=== PATIENT | female | born 1995 | race Caucasian/White ===

== ENCOUNTER 2022-12-04 13:05 | Emergency (ER) | payer OTHER, SELFPAY ==
[2022-12-04 13:13] VITALS: BP 140/71; PULSE 92; RESP 18; TEMP 36.4; O2SAT 100
--- NOTE | 2022-12-04 16:16 | ED.NAVMDI ---
HPI - Nausea/Vomiting/Diarrhea General Chief complaint: Nausea/Vomiting/Diarrhea Stated complaint: CHECK FOR FOOD POISONING Time Seen by Provider: 12/04/22 15:55 Source: patient Mode of arrival: ambulatory Limitations: no limitations History of Present Illness HPI Narrative: Patient is a 27 y/o female who presents to the ED with c/o nausea. Patient reports on Sunday she bought a [employer] shot [place] [employer] [place] She states after she drinks the shot she realized it was 4 months and had mold in the container. Since then, patient has felt unwell, with nausea, upset stomach, soft stools, subjective fevers. Patient is concerned she has food poisoning. She denies any documented fever. Denies rectal bleeding, melena, vomiting. Related Data Allergies Allergy/AdvReac Type Severity Reaction Status Date / Time lactase [From Dairy Aid] Allergy Hives Verified 12/04/22 15:53 Review of Systems Review of Systems: CONSTITUTIONAL: See HPI. CARDIOVASCULAR: Denies chest pain. RESPIRATORY: Denies dyspnea. GASTROINTESTINAL: See HPI. GENITOURINARY: Denies dysuria or hematuria. SKIN: Denies rash or itching. MUSCULOSKELETAL: Denies back pain, joint pain, or myalgia. All systems reviewed & are unremarkable except as noted in HPI and below Exam Narrative: GENERAL: Well appearing, well-nourished, non-toxic, in no acute distress. HEAD: Normocephalic, atraumatic. NECK: Supple. No adenopathy, no masses. RESPIRATORY: Airway patent, respirations nonlabored. Clear to auscultation bilaterally, no rales, rhonchi, wheezing. CARDIOVASCULAR: Regular rate and rhythm without murmurs, rubs, or gallops. Peripheral pulses 2+ and equal bilaterally. ABDOMINAL: Soft, no significant tenderness throughout abdomen, nondistended, no hepatosplenomegaly. Normoactive BS. MUSCULOSKELETAL: Moves all extremities. Strength/ROM intact without gross deformities. SKIN: Warm, dry, normal color. No rashes. NEURO: A&O X3. Speech clear. Cranial nerves II-XII grossly intact. Steady gait. No ataxic movements. PSYCHIATRIC: Appropriate mood and affect. Normal interaction. Course Vital Signs Vital signs: Vital Signs Temperature 97.6 F 12/04/22 13:13 Pulse Rate 92 12/04/22 13:13 Respiratory Rate 18 12/04/22 13:13 Blood Pressure 140/71 12/04/22 13:13 Pulse Oximetry 100 12/04/22 13:13 Temperature 97.6 F 12/04/22 13:13 Pulse Rate 92 12/04/22 13:13 Respiratory Rate 18 12/04/22 13:13 Blood Pressure 140/71 12/04/22 13:13 Pulse Oximetry 100 12/04/22 13:13 MDM - Nausea/Vomiting/Diarrhea MDM Narrative Medical decision making narrative: Patient presented to ED with nausea, upset stomach, soft stools after drinking an health shot. Vitals stable upon arrival. Afebrile. Patient's abdominal exam is benign, no significant focal tenderness, no signs of surgical abdomen to suggest need for imaging. Basic blood work was obtained and unremarkable, no leukocytosis. No electrolyte abnormality. Normal LFTs and lipase. On reevaluation, patient feeling improved after nausea medicine and a liter of fluids. She was updated on laboratory findings. She had specifically asked to be tested for Salmonella and E. coli, which I advised her are not routine studies performed in the ED. Discussed obtaining a stool culture for sample analysis. Patient would like to proceed with this. She was given a collection hat and a outpatient order for a stool culture was placed. Advised patient to follow with primary care doctor for further evaluation. She was given strict return precautions. Discharged in stable condition. Medical Records Attestation: I reviewed the patient's medical records. Lab Data Attestation: I reviewed the patient's lab results. 12/04/22 16:24 12/04/22 16:24 Labs: Lab Results 12/04/22 Range/Units 16:24 WBC 7.0 (4.5-10.0) K/mm3 RBC 4.69 (4.2-5.4) M/mm3 Hgb 13.6
[2022-12-04 16:32] LABS: Basophils Absolute Auto 0.1 K/mm3 (0.0-0.1); Basophils Percent Auto 0.9 % (0.2-1.2); Eosinophils Absolute Auto 0.2 K/mm3 (0-0.3); Eosinophils Percent Auto 2.7 % (0-4.4); Hematocrit 40.8 % (37.0-47.0); Hemoglobin 13.6 g/dL (12.0-15.0); Immature Granulocyte Absolute 0.02 K/mm3 (0.00-0.031); Immature Granulocyte Percent A 0.3 % (0-0.5); Lymphocytes Absolute Auto 3.05 K/mm3 (0.9-3.2); Lymphocytes Percent Auto 43.7 % (18.3-44.2); Mean Corpuscular HGB Conc 33.3 g/dl (32-36); Mean Platelet Volume 10.4 fl (7.4-10.4); Monocytes Absolute Auto 0.6 K/mm3 (0.1-0.6); Monocytes Percent Auto 8.5 % (2.6-8.5); Neutrophils Absolute Auto 3.1 K/mm3 (1.3-6.7); Neutrophils Percent Auto 43.9 % (45.5-73.1); Platelet Count Result 219 k/mm3 (150-375); Red Blood Count 4.69 M/mm3 (4.2-5.4); Red Cell Distribution Width 12.5 % (11.5-14.5)
[2022-12-04 16:41] LABS: Alanine Aminotransferase 17 U/L (6-35); Albumin Level 4.7 g/dL (3.5-5.1); Alkaline Phosphatase 44 U/L (38-126); Anion Gap 7 mmol/L (8-16); Aspartate Amino Transferase 22 U/L (14-36); Bilirubin,Total 1.5 mg/dL (0.2-1.3); Blood Urea Nitrogen 15 mg/dL (7-17); Calcium 9.2 mg/dL (8.4-10.2); Carbon Dioxide 29 mmol/L (22-30); Chloride 104 mmol/L (98-107); Estimated CRCL calculation 112 ml/min; Estimated Glomerular Filt Rate > 60; Glucose 88 mg/dL (65-110); Lipase 72 U/L (23-300); Potassium 3.9 mmol/L (3.4-5.0); Sodium 140 mmol/L (137-145)
[2022-12-04] MEDS: ONDANSETRON INJ 4 MG/2 ML VIAL IV PUSH (16:44)
[2022-12-04] MEDS: SODIUM CHLORIDE 0.9% IV 1,000 ML 999 ML IV CONT (16:44)
== END 2022-12-04 18:20 | disposition home or self-care (01) ==
PROVIDERS: Emergency Provider Physician Assistant
DX: A05.9 Bacterial foodborne intoxication, unspecified (principal)
CPT/HCPCS: 36415; 80053; 83690; 85025; 96361; 96374; 99284; J2405; J7030

== ENCOUNTER 2022-12-05 10:11 | Outpatient (CLI) | payer OTHER, SELFPAY | END 2022-12-05 10:12 | disposition home or self-care (01) | LOC: ANHLAB 10:12 | PROVIDERS: Visit Provider Physician Assistant | DX: A05.9 Bacterial foodborne intoxication, unspecified (principal) | CPT/HCPCS: 87045; 87427 ==

== ENCOUNTER 2022-12-11 10:55 | Outpatient (CLI) | payer OTHER, SELFPAY ==
[2022-12-11 11:32] LABS: Basophils Percent Auto 0.6 % (0.2-1.2); Eosinophils Absolute Auto 0.3 K/mm3 (0-0.3); Eosinophils Percent Auto 5.1 % (0-4.4); Hematocrit 38.5 % (37.0-47.0); Hemoglobin 12.6 g/dL (12.0-15.0); Immature Granulocyte Absolute 0.01 K/mm3 (0.00-0.031); Immature Granulocyte Percent A 0.2 % (0-0.5); Lymphocytes Absolute Auto 3.08 K/mm3 (0.9-3.2); Lymphocytes Percent Auto 48.7 % (18.3-44.2); Mean Corpuscular HGB Conc 32.7 g/dl (32-36); Mean Corpuscular Hemoglobin 28.9 pg (26-34); Mean Corpuscular Volume 88.3 fl (80-100); Mean Platelet Volume 10.3 fl (7.4-10.4); Monocytes Absolute Auto 0.6 K/mm3 (0.1-0.6); Monocytes Percent Auto 9.3 % (2.6-8.5); Neutrophils Absolute Auto 2.3 K/mm3 (1.3-6.7); Neutrophils Percent Auto 36.1 % (45.5-73.1); Platelet Count Result 218 k/mm3 (150-375); Red Blood Count 4.36 M/mm3 (4.2-5.4); Red Cell Distribution Width 12.6 % (11.5-14.5); White Blood Count 6.3 K/mm3 (4.5-10.0)
[2022-12-11 12:08] LABS: Alanine Aminotransferase 17 U/L (6-35); Albumin Level 4.5 g/dL (3.5-5.1); Alkaline Phosphatase 47 U/L (38-126); Anion Gap 7 mmol/L (8-16); Aspartate Amino Transferase 24 U/L (14-36); Bilirubin,Total 0.7 mg/dL (0.2-1.3); Blood Urea Nitrogen 15 mg/dL (7-17); Calcium 9.2 mg/dL (8.4-10.2); Carbon Dioxide 28 mmol/L (22-30); Chloride 104 mmol/L (98-107); Cholesterol 180 mg/dL (0-200); Estimated Glomerular Filt Rate > 60; Glucose 97 mg/dL (65-110); HDL Direct 74 mg/dL; Potassium 3.9 mmol/L (3.4-5.0); Sodium 139 mmol/L (137-145); Triglycerides 39 mg/dL (<150)
[2022-12-11 12:19] LABS: LDL Cholesterol Direct 72 mg/dL
[2022-12-11 12:27] LABS: Vitamin D 25 Hydroxy 67.3 ng/mL
[2022-12-11 12:38] LABS: Thyroid Stimulating Hormone 0.761 uIU/mL (0.465-4.680)
== END 2022-12-11 10:56 | disposition home or self-care (01) ==
LOC: ANHLAB 10:56
PROVIDERS: Visit Provider Registered Nurse
DX: Z79.899 Other long term (current) drug therapy (principal)
CPT/HCPCS: 36415; 80053; 80061; 82306; 84443; 85025

== ENCOUNTER 2022-12-22 15:36 | Outpatient (CLI) | payer OTHER, SELFPAY ==
--- NOTE | ~2022-12-22 | US_ITS ---
Thyroid ultrasound. Clinical History: Nontoxic goiter Findings: Real-time sonography of the thyroid gland was performed. The right lobe measures 5.1 x 1.8 x 2.1 cm. The left lobe measures 5.2 x 1.4 x 1.8 cm. The isthmus is 3 mm in AP diameter. No discrete thyroid nodule identified. Impression: No significant abnormality seen. Reviewed, dictated and finalized at [facility]. Impression: No significant abnormality seen.
--- NOTE | ~2022-12-22 | US_ITS ---
EXAMINATION: US breast LT limited HISTORY: Palpable lump in the upper outer quadrant of the left breast TECHNIQUE: Limited left breast ultrasound was performed. FINDINGS: There is a 1.6 x 1.4 x 0.7 cm oval, circumscribed, parallel, hypoechoic mass with posterior acoustic enhancement and minimal internal vascularity at the 2:00 location 5 cm from the nipple babak esponding to the palpable abnormality of concern. IMPRESSION: Probably benign left breast mass corresponding to the palpable abnormality. Recommend continued clini marcie physical examination and follow-up targeted left breast ultrasound in six months. BI-RADS category 3, probably benign findings. Reviewed, dictated and finalized at [facility]. IMPRESSION: Probably benign left breast mass corresponding to the palpable abnormality. Rec ommend continued clinical physical examination and follow-up targeted left ry st ultrasound in six months. BI-RADS category 3, probably benign findings.
== END 2022-12-22 15:37 | disposition home or self-care (01) ==
PROVIDERS: Visit Provider Registered Nurse
DX: N63.21 Unspecified lump in the left breast, upper outer quadrant (principal); E04.9 Nontoxic goiter, unspecified
CPT/HCPCS: 76536; 76642

== ENCOUNTER 2023-07-23 13:31 | Outpatient (CLI) | payer OTHER, SELFPAY ==
--- NOTE | ~2023-07-23 | US_ITS ---
US breast LT limited DATE: 07/23/2023 INDICATION: Six-month follow-up TECHNIQUE: Real-time and color flow imaging targeted at 2:00 5 cm from nipple COMPARISON: 12/2022 left breast Limited ultrasound examination: 1.6 x 1.4 x 0.7 cm oval circumscribed parallel hypoechoic mass with posterior enhancement and minimal vascularity was reported at 2:00 5 c m from the nipple FINDINGS: Approximately 1.2 x 0.7 x 1.3 cm parallel circumscribed hypoechoic mass has diminished in s ize since 12/22/2022. The interval decrease in size, circumscribed margins and parallel orientation an d posterior enhancement are most consistent with benign process, most likely fibroadenoma. IMPRESSION: BIRADS Category 2: Benign finding Reviewed, dictated and finalized at [facility]. Reviewed, dictated and finalized at [facility]. [employer]
== END 2023-07-23 13:32 | disposition home or self-care (01) ==
LOC: ANHIMG 13:35
PROVIDERS: Visit Provider Obstetrics & Gynecology
DX: N63.20 Unspecified lump in the left breast, unspecified quadrant (principal)
CPT/HCPCS: 76642

== ENCOUNTER 2023-07-26 09:25 | Outpatient (CLI) | payer OTHER, SELFPAY ==
[2023-07-28 15:33] LABS: NIL 0.02 IU/mL; Quantiferon TB Plus, 1T NEGATIVE (NEGATIVE)
== END 2023-07-26 09:26 | disposition home or self-care (01) ==
DX: Z11.1 Encounter for screening for respiratory tuberculosis (principal)
CPT/HCPCS: 36415; 86480

== ENCOUNTER 2024-02-01 08:44 | Outpatient (CLI) | payer OTHER, SELFPAY ==
[2024-02-01 09:47] LABS: Alanine Aminotransferase 13 U/L (6-35); Albumin Level 4.2 g/dL (3.5-5.1); Alkaline Phosphatase 42 U/L (38-126); Anion Gap 7 mmol/L (4-12); Aspartate Amino Transferase 20 U/L (14-36); Bilirubin,Total 1.7 mg/dL (0.2-1.3); Blood Urea Nitrogen 18 mg/dL (7-17); Carbon Dioxide 28 mmol/L (22-30); Chloride 102 mmol/L (98-107); Cholesterol 169 mg/dL (0-200); Estimated Glomerular Filt Rate > 60; Glucose 87 mg/dL (65-110); HDL Direct 72 mg/dL; Potassium 4.4 mmol/L (3.4-5.0); Sodium 137 mmol/L (137-145); Triglycerides 34 mg/dL (<150)
[2024-02-01 09:53] LABS: Rheumatoid Factor < 12.0 IU/ML (<12)
[2024-02-01 09:56] LABS: Erythrocyte Sedimentation Rate 1 mm/hr (0-20)
[2024-02-01 09:58] LABS: LDL Cholesterol Direct 73 mg/dL
[2024-02-01 10:13] LABS: Thyroid Stimulating Hormone 0.539 uIU/mL (0.465-4.680)
[2024-02-01 10:44] LABS: Vitamin D 25 Hydroxy 43.1 ng/mL
[2024-02-01 10:46] LABS: Hemoglobin A1C 5.3 % (<5.7)
[2024-02-05 06:23] LABS: Triiodothyronine T3 Free 3.6 pg/mL (2.3-4.2)
[2024-02-05 17:09] LABS: Thyroid Peroxidase Antibodies 1 IU/mL (<9)
[2024-02-08 14:54] LABS: Anti Cyclic Citrullinated Pept <16 UNITS
== END 2024-02-01 08:45 | disposition home or self-care (01) ==
LOC: ANHLAB 08:46
PROVIDERS: PCP Family Medicine; Visit Provider Family Medicine
DX: E55.9 Vitamin D deficiency, unspecified (principal); E78.2 Mixed hyperlipidemia; Z13.1 Encounter for screening for diabetes mellitus; E04.9 Nontoxic goiter, unspecified; Z83.49 Family history of other endocrine, nutritional and metabolic diseases; M25.50 Pain in unspecified joint; Z00.00 Encounter for general adult medical examination without abnormal findings
CPT/HCPCS: 36415; 80053; 80061; 82306; 83036; 84439; 84443; 84481; 85652; 86038; 86039; 86200; 86376; 86430; 86800

== ENCOUNTER 2025-03-16 08:56 | Outpatient (CLI) | payer OTHER, SELFPAY ==
--- OUTSIDE RECORDS SUMMARY | 2024-04-05 16:00 | XMS_ITS ---
Author Organization [facility] Address [address] [place] [address] Care Team Providers Care Form Tamper Operator Name Role Phone Merna Valente Primary Care Provider Migration, Provider Unavailable Unavailable REASON FOR VISIT Multum To [facility] Conversion Encounter Medications Medication SIG (Take, Route, Frequency, Duration) Notes Start Date End Date Status Spironolactone 50 MG Tablet 2 tabs orally daily; Duration: 90 days 03/06/2024 Active Multi Vitamin - Tablet 1 tab(s) orally once a day Unknown Fish Oil 1000 MG Capsule 1 cap(s) orally 3 times a day (with meals) Unknown Vitamin D3 250 MCG CAPSULE 1 CAP(S) ORALLY ONCE A WEEK *Please review and pick correct strength-formulati on from Medispan options. If intended option is not shown, discontinue and re-order from Quick Search* *Pick strength-form from Medispan for eRX* Unknown Collagen Skin Renewal *Please re view and pick correct strength-formulati on from Medispan options. If intended option is not shown, discontinue and re-order from Quick Search* *Pick strength-form from Medispan for eRX* Unknown Encounters Encounter Location Date Provider Diagnosis [address] [id number] 04/05/2024 Provider Migration Polycystic ovarian syndrome E28.2 Assessments Encounter Date Diagnosis (ICD Code) Assessment Notes Treatment Notes Treatment Clinical Notes Section Notes 04/05/2024 Polycystic ovarian syndrome (ICD-10 - E28.2) Plan Of Treatment Medication Medication Name Sig Start Date Stop Date Notes Spironolactone 50 MG Tablet 2 tabs orall y daily; Duration: 90 days 03/06/2024 Next Appt Details Provider Name:Merna Valente, 09:40:00 AM, [address] [place] [address], [place], [address], Progress Notes * Linsey DURHAMOB:1994 (30 yo F)Acc No.[id number]:04/05/2024 Patient: Jona Carmichael Provider: Luiz deluca Migration :1995 A ge:29 Y S ex:Female Date:04/05/2024 Address:[address] [place], [place] [id number] Pcp:Merna Valente Subjective: * Chief Complaints: * M ultum To Medispan Conversion Encounter * Medications: U nknownCollagen Skin Renewal , Notes to Pharmacist: *Please review and pick correct strength-formulation from Medispan options. If intended option is not shown, discontinue and re-order from Quick Search* *Pick strength-form from Medispan for eRX*Vitamin D3 250 MCG CAPSULE 1 CAP(S) ORALLY ONCE A WEEK , Notes to Pharmacist: *Please review and pick correct strength-formulation from Medispan options. If intended option is not shown, discontinue and re-order from Quick Search* *Pick strength-form from Medispan for eRX*Fish Oil 1000 MG Capsule 1 cap(s) orally 3 times a day (with meals) Multi Vitamin - Tablet 1 tab(s) orally once a day Unknown Collagen Skin Renewal , Notes to Pharmacist: *Please review and pick correct strength-formulation from Medispan options. If intended option is not shown, discontinue and re-order from Quick Search* *Pick strength-form from Medispan for eRX*Unknown Vitamin D3 250 MCG CAPSULE 1 CAP(S) ORALLY ONCE A WEEK , Notes to Pharmacist: *Please review and pick correct strength-formulation from Medispan options. If intended option is not shown, discontinue and re-order from Quick Search* *Pick strength-form from Medispan for eRX*Unknown Fish Oil 1000 MG Capsule 1 cap(s) orally 3 times a day (with meals) Unknown Multi Vitamin - Tablet 1 tab(s) orally once a day Assessment: * Assessment: 1. P olycystic ovarian syndrome - E28.2 Plan: * Treatment: * Electronic signature of Prov ider Migration on 03/16/2025 at 09:35 AM CDT Sign off status: Pending * Provider: Luiz deluca Migration Date: 06/05/2023 Generated for Marisol houston/Bri/Arianna on: 09:35 AM CDT
--- OUTSIDE RECORDS SUMMARY | 2024-04-05 16:00 | XMS_ITS ---
Author Organization [facility] Address [address] [place] [address] Care Team Providers Care Building Maintenance Worker Name Role Phone Merna Valente Primary Care Provider [phone] Migration, Provider Unavailable Unavailable REASON FOR VISIT Multum To Medispan Conversion Encounter Medications Medication SIG (Take, Route, Frequency, Duration) Notes Start Date End Date Status Spironolactone 50 MG 2 tabs orally daily; Duration: 90 days 03/06/2024 Active Fish Oil 1000 MG 1 cap(s) orally 3 times a day (with meals) Unknown Multi Vitamin - 1 tab(s) orally once a day Unknown Collagen Skin Renewal *Please re view and pick correct strength-formulati on from Medispan options. If intended option is not shown, discontinue and re-order from Quick Search* Unknown Vitamin D3 250 MCG 1 CAP(S) ORALLY ONCE A WEEK *Please review and pick correct strength-formulati on from Medispan options. If intended option is not shown, discontinue and re-order from Quick Search* Unknown Encounters Encounter [facility] Date [facility] [address] [place] [address] 04/05/2024 Provider Migration Polycystic ovarian syndrome E28.2 Assessments Encounter Date Diagnosis (ICD Code) Assessment Notes Treatment Notes Treatment Clinical Notes Section Notes 04/05/2024 Polycystic ovarian syndrome (ICD-10 - E28.2) Plan Of Treatment Medication Medication Name Sig Start Date Stop Date Notes Spironolactone 50 MG 2 tabs orally daily ; Duration: 90 days 03/06/2024 Progress Notes * Linsey DURHAMOB:1994 (30 yo F)Acc No.[id number]:04/05/2024 Patient: Joan SIER[place] Provider: Luiz Ross :1995 A ge:29 Y S ex:Female Date:04/05/2024 Address:[address] [place], [place] [id number] Pcp:Merna Valente Subjective: * Chief Complaints: * 1 . Multum To Medispan Conversion Encounter. * Medical History: * Medications: U nknown Collagen Skin Renewal , Notes to Pharmacist: *Please review and pick correct strength-formulation from Medispan options. If intended option is not shown, discontinue and re-order from Quick Search*, Unknown Vitamin D3 250 MCG CAPSULE 1 CAP(S) ORALLY ONCE A WEEK , Notes to Pharmacist: *Please review and pick correct strength-formulation from Medispan options. If intended option is not shown, discontinue and re-order from Quick Search*, Unknown Fish Oil 1000 MG Capsule 1 cap(s) orally 3 times a day (with meals) , Unknown Multi Vitamin - Tablet 1 tab(s) orally once a day Objective: * Vitals: Assessment: * Assessment: 1. P olycystic ovarian syndrome - E28.2 Plan: * Treatment: * Billing Information: * Visit Code: * Procedure Codes: * Electronic signature of Prov ider Migration on 03/16/2025 at 09:36 AM CDT Sign off status: Pending * Provider: Luiz Ross Date: 06/05/2023 Generated for Marisol houston/Bri/Arianna on: 09:36 AM CDT
--- OUTSIDE RECORDS SUMMARY | 2024-07-18 04:30 | XMS_ITS ---
Author Organization [employer] [facility] Address [address] [place] [address] Care Team Providers Care Linen Room Worker Name Role Phone Merna Valente Primary Care Provider REASON FOR VISIT 6 week f/u bonita Encounters Encounter Location Date Provider Diagnosis [facility] - Merna Valente [address] [place] [address] 07/18/2024 Merna Valente Plan Of Treatment No Information Progress Notes * Linsey DURHAMOB:1994 (30 yo F)Acc No.[id number]:07/18/2024 Progress Notes Patient: Joan SIER[place] Provider: Vu Valente MD :1995 A ge:29 Y S ex:Female Date:07/18/2024 Address:[address] [place] [address], [facility] Subjective: * Chief Complaints: * 1 . 6 week f/u bonita. * Medical History: Objective: * Vitals: Assessment: Plan: * Treatment: * Billing Information: * Visit Code: * Procedure Codes: * Electronic signature of Nav Valente MD on 03/16/2025 at 09:35 AM CDT Sign off status: Pending * Provider: Vu Valente MD Date: 0 07/18/2024 Generated for Marisol houston/Bri/eTransmitting on: 1 09:35 AM CDT
--- OUTSIDE RECORDS SUMMARY | 2024-07-18 04:30 | XMS_ITS ---
Author Organization [facility] Address [address] [place], [place] [address] Care Team Providers Care Navigating Officer Name Role Phone Merna Valente Primary Care Provider [phone] REASON FOR VISIT 6 week f/u bonita Encounters Encounter Location Date Provider Diagnosis [facility] Dr[facility] Valente [address] [place] [phone] 07/18/2024 Merna Valente Plan Of Treatment Next Appt Details Provider Name:Merna Valente, 09:40:00 AM, [address] [place] [address], [phone], Progress Notes * RAORadha WHITEDangeloOB:1994 (30 yo F)Acc No.[id number]:07/18/2024 Progress Notes Patient: Joan Carmichael Provider: Vu Valente MD :1995 A ge:29 Y S ex:Female Date:07/18/2024 Address:[address] [place], [place] [phone] Subjective: * Chief Complaints: * 6 week f/u bonita * Electronic signature of Nav Valente MD on 03/16/2025 at 09:36 AM CDT Sign off status: Pending * Provider: Vu Valente MD Date: 0 07/18/2024 Generated for Marisol ng/Fastevieg/eTransmitting on: 1 09:36 AM CDT
--- OUTSIDE RECORDS SUMMARY | 2024-08-07 04:40 | XMS_ITS ---
Author Organization [facility] Address [address] [place], [place] [address] Care Team Providers Care Science Technician Name Role Phone Merna Valente Primary Care Provider REASON FOR VISIT lab review/follow up Encounters Encounter Location Date Provider Diagnosis [facility] Dr. Valente [address] [place] [phone] 08/07/2024 Merna Valente Plan Of Treatment Next Appt Details Provider Name:Merna Valente, 09:40:00 AM, [address] [place] [address], [phone], Progress Notes * RAORadha WHITEDangeloOB:1994 (30 yo F)Acc No.[id number]:08/07/2024 Progress Notes Patient: Joan Carmichael Provider: Vu Valente MD :1995 A ge:29 Y S ex:Female Date:08/07/2024 Address:[address] [place], [place] [phone] Subjective: * Chief Complaints: * L ab review/follow up * Electronic signature of Nav Valente MD on 03/16/2025 at 09:35 AM CDT Sign off status: Pending * Provider: Vu Valente MD Date: 0 08/07/2024 Generated for Marisol ng/Fastevieg/eTransmitting on: 1 09:35 AM CDT
--- OUTSIDE RECORDS SUMMARY | 2024-08-07 04:40 | XMS_ITS ---
Author Organization [employer] [facility] Address [address] [place] [address] Care Team Providers Care Tile Sprayer Name Role Phone Merna Valente Primary Care Provider [phone] REASON FOR VISIT lab review/follow up Encounters Encounter Location Date Provider Diagnosis [facility] - Merna Valente [address] [place] [address] 08/07/2024 Merna Valente Plan Of Treatment No Information Progress Notes * Linsey DURHAMOB:1994 (30 yo F)Acc No.[id number]:08/07/2024 Progress Notes Patient: Joan SIERRA Provider: Vu Valente MD :1995 A ge:29 Y S ex:Female Date:08/07/2024 Address:[address] [place] [address], [facility] Subjective: * Chief Complaints: * 1 . Lab review/follow up. * Medical History: Objective: * Vitals: Assessment: Plan: * Treatment: * Billing Information: * Visit Code: * Procedure Codes: * Electronic signature of Nav Valente MD on 03/16/2025 at 09:35 AM CDT Sign off status: Pending * Provider: Vu Valente MD Date: 0 08/07/2024 Generated for Marisol houston/Bri/eTransmcornel on: 1 09:35 AM CDT
--- OUTSIDE RECORDS SUMMARY | 2024-08-15 04:40 | XMS_ITS ---
Author Organization [employer] [facility] Address [address] [place] [address] Care Team Providers Care Staff Development Coordinator Name Role Phone Merna Valente Primary Care Provider REASON FOR VISIT f/u bonita Encounters Encounter Location Date Provider Diagnosis [facility] - Merna Valente [address] [place] [address] 08/15/2024 Merna Valente Plan Of Treatment No Information Progress Notes * Linsey DURHAMOB:1994 (30 yo F)Acc No.[id number]:08/15/2024 Progress Notes Patient: Joan SIERRA Provider: Vu Valente MD :1995 A ge:29 Y S ex:Female Date:08/15/2024 Address:[address] [place] [address], [facility] Subjective: * Chief Complaints: * 1 . F/u bonita. * Medical History: Objective: * Vitals: Assessment: Plan: * Treatment: * Billing Information: * Visit Code: * Procedure Codes: * Electronic signature of Nav Valente MD on 03/16/2025 at 09:35 AM CDT Sign off status: Pending * Provider: Vu Valente MD Date: 0 08/15/2024 Generated for Marisol houston/Bri/eTransmitting on: 1 09:35 AM CDT
--- OUTSIDE RECORDS SUMMARY | 2024-12-15 04:00 | XMS_ITS ---
Author Organization [facility] Address [address] [place], [place] [address] Care Team Providers Care Hose Suspender Cutter Name Role Phone Merna Valente Primary Care Provider REASON FOR VISIT 4 month f/u Medications Medication SIG (Take, Route, Frequency, Duration) Notes Start Date End Date Status Spironolactone 50 MG Tablet TAKE 2 TABLETS BY MOUTH DAILY; Duration: 90 please use Soil IQ as others do not work for patient Active Collagen Skin Renewal *Please re view and pick correct strength-formulation from Medispan options. If intended option is not shown, discontinue and re-order from Quick Search* *Pick strength-form from Medispan for eRX* Active Vitamin D3 250 MCG CAPSULE 1 CAP(S) ORALLY ONCE A WEEK *Please review and pick correct strength-formulation from Medispan options. If intended option is not shown, discontinue and re-order from Quick Search* *Pick strength-form from Medispan for eRX* Active Fish Oil 1000 MG Capsule 1 cap(s) orally 3 times a day (with meals) Active Multi Vitamin - Tablet 1 tab(s) orally once a day Active Encounters Encounter Location Date Provider Diagnosis [facility] Dr[facility] Valente [address] [place] [address] 12/15/2024 Merna Valente Plan Of Treatment Next Appt Details Provider Name:Merna Valente, 09:40:00 AM, [address] [place] [address], [phone], History and Physical Notes * HPI (History of Present Illness) Category Sub-Category Detail Notes Category Not es History of Present Illness 29 yo female comes in today for follow up in management of PCOS and autoimmune thyroiditis. At last visit we recommended spironolactone and thyroid support. Urinary PEA from July was normal/not elevated so hypophosphatasia highly unlikely. Needs labwork Progress Notes * Linsey TALLEYOB:1994 (30 yo F)Acc No.[id number]:12/15/2024 Progress Notes Patient: Joan Carmichael Provider: Vu Valente MD :1995 A ge:29 Y S ex:Female Date:12/15/2024 Address:[address] [place], [place] [phone] Subjective: * Chief Complaints: * 4 month f/u * HPI: H istory of Present Illness: 29 yo female comes in today for follow up in management of PCOS and autoimmune thyroiditis. At last visit we recommended spironolactone and thyroid support. Urinary PEA from July was normal/not elevated so hypophosphatasia highly unlikely. Needs labwork. * Medications: T akingCollagen Skin Renewal , Notes to Pharmacist: *Please review and pick correct strength-formulation from Medispan options. If intended option is not shown, discontinue and re-order from Quick Search* *Pick strength-form from Medispan for eRX*Vitamin D3 250 MCG CAPSULE 1 CAP(S) ORALLY ONCE A WEEK , Notes to Pharmacist: *Please review and pick correct strength-formulation from [employer]pan options. If intended option is not shown, discontinue and re-order from Quick Search* *Pick strength-form from Medispan for eRX*Fish Oil 1000 MG Capsule 1 cap(s) orally 3 times a day (with meals) Multi Vitamin - Tablet 1 tab(s) orally once a day Spironolactone 50 MG Tablet TAKE 2 TABLETS BY MOUTH DAILY , Notes to Pharmacist: please use Soil IQ as others do not work for patientTaking Collagen Skin Renewal , Notes to Pharmacist: *Please review and pick correct strength-formulation from [employer]pan options. If intended option is not shown, discontinue and re-order from Quick Search* *Pick strength-form from Medispan for eRX*Taking Vitamin D3 250 MCG CAPSULE 1 CAP(S) ORALLY ONCE A WEEK , Notes to Pharmacist: *Please review and pick correct strength-formulation from Medispan options. If intended option is not shown, discontinue and re-order from Quick Search* *Pick strength-form from [employer] for eRX*Taking Fish Oil 1000 MG Capsule 1 cap(s) orally 3 times a day (with meals) Taking Multi Vitamin - Tablet 1 tab(s) orally once a day Taking Spironolactone 50 MG Tablet TAKE 2 TABLETS BY MOUTH DAILY , Notes to Pharmacist: please use Soil IQ as others do not work for patient Billing Information: * Procedure Codes: * Electronic signature of Nav Valente MD on 03/16/2025 at 09:35 AM CDT Sign off status: Pending * Provider: Vu Valente MD Date: 0 12/15/2024 Generated for Marisol houston/Bri/Arianna on: 1 09:35 AM CDT
--- OUTSIDE RECORDS SUMMARY | 2025-02-27 10:10 | XMS_ITS ---
Author Organization [facility] Address [address] [place], [place] [address] Care Team Providers Care Patent Drafter Name Role Phone Merna Valente Primary Care Provider REASON FOR VISIT 2 month f/u Encounters Encounter Location Date Provider Diagnosis [facility] Dr[facility] Valente [address] [place] [phone] 02/27/2025 Merna Valente Plan Of Treatment Next Appt Details Provider Name:Merna Valente, 09:40:00 AM, [address] [place] [address], [phone], Progress Notes * RAORadha WHITEelleDOB:1994 (30 yo F)Acc No.[id number]:02/27/2025 Progress Notes Patient: Joan Carmichael Provider: Vu Valente MD :1995 A ge:29 Y S ex:Female Date:02/27/2025 Address:[address] [place], [place] [phone] Subjective: * Chief Complaints: * 2 month f/u * Electronic signature of Nav Valente MD on 03/16/2025 at 09:34 AM CDT Sign off status: Pending * Provider: Vu Valente MD Date: Generated for Marisol ng/Fastevieg/eTransmitting on: 09:34 AM CDT
--- OUTSIDE RECORDS SUMMARY | 2025-03-16 09:34 | XMS_ITS | Encounter Summary ---
Author Organization [facility] Address [address] [place] [address] Care Team Providers Care Weed Controller Name Role Phone Esmer Llanes NP Primary Care Provider [phone] Encounter Details Date Type Department Care Team (Late st Contact Info) Description 06/10/2021 Sapheneiat Message Enc [facility] Family Medicine - [place] [address] [place], [place] [phone] Esmer Llanes NP [address] [place], [place] [phone] MRI Social History Tobacco Use Types Packs/Day Years Used Date Smoking Tobacco: Never Smokeless Tobacco: Never Alcohol Use Standard Drinks/Week Comments Yes 0 (1 standard drink = 0.6 oz pur e alcohol) once a week glass of wine Comments Unknown Sex and Gender Information Value Date Recorded Sex Assigned at Not on file Legal Sex Female 3:03 PM COMMUNICATIONS EXECUTIVE Gender Identity Not on file Sexual Orientation Not on file COVID-19 Exposure Response Date Recorded In the last month, have you been in contact with someone who was confirmed or suspected to have Coronavirus / COVID-19? No / Unsure 06/10/2021 10:01 AM COMMUNICATIONS EXECUTIVE documented as of this encounter Plan of Treatment Not on file documented as of this encounter Visit Diagnoses Not on filedocumented in this encounter Care Teams Weed Controller Relationship Specialty Start Date End Date Esmer Llanes NP [address] [place], [place] [address] PCP - General NURSE PRACTITIONER 06/08/21 02/26/25 documented as of this encounter
--- OUTSIDE RECORDS SUMMARY | 2025-03-16 09:35 | XMS_ITS | Clinical Summary ---
Author Organization [facility] Address [address] [place] [address] Care Team Providers Care Chemical Processing Laborer Name Role Phone No, Physician Primary Care Provider [phone] Allergies Active Allergy Reactions Criticality Noted Date Comments Dairy - All Forms And Ingredients Unknown Medications docosahexanoic acid-epa (FISH OIL) 120-180 mg capsule 120-180 mg. 0 0 08/29/2016 Active multivitamin-ir on-folic acid (MULTI COMPLETE WITH IRON) 18-400 mg-mcg tablet take 1 tablet by oral route every day with food 0 0 08/29/2016 Active acetaminophen (TYLENOL) 500 mg tablet Take 500 mg by mouth every 6 (six) hours as needed Active cyclobenzaprine (FLEXERIL) 5 mg tablet 06/10/2021 Active predniSONE (DELTASONE) 20 mg tablet TAKE 3 TABLETS DAILY X3 DAYS. 2 TABLETS DAILY X3 DAYS. 1 TABLET DAILY FOR 3 DAYS. THEN STOP. 06/10/2021 Active Active Problems Problem Noted Date Diagnosed Date Congestion of paranasal sinus 08/29/2016 Overview (12/17/2016): Sinus congestion Immunizations Immunization Administration Dates Next Due Skully Helmets (J&J) SARS-CoV-2 Vaccination 11/17/2020 Family History Medical History Relation Name Comments Allergies Father Allergies Mother Relation Name Status Comments Father Mother Social History Tobacco Use Types Packs/Day Years Used Date Smoking Tobacco: Never Smokeless Tobacco: Never Alcohol Use Standard Drinks/Week Comments Not Currently 0 (1 standard drink = 0.6 oz pur e alcohol) AUDIT-C Answer Date Recorded Q1: How often do you have a drink containing alc ohol? 2-4 times a month 06/15/2021 Average Number of Drinks Not on file 022 Q3: How often do you have si x or more drinks on one occasion? Never 06/15/2021 PHQ-2 Answer Date Recorded PHQ-2 Total Score (If total score is 3 or more points, staff should administer the PHQ-9) 0 10/06/2020 Comments No Sex and Gender Information Value Date Recorded Sex Assigned at Not on file Legal Sex Female 8:43 PM CDT Gender Identity Not on file Sexual Orientation Not on file Obstetrics History Last Filed Vital Signs Vital Sign Reading Time Taken Comments Blood Pressure 134/87 06/15/2021 8:19 AM FOOD AND BEVERAGE ASSOCIATE Pulse 76 06/15/2021 8:19 AM FOOD AND BEVERAGE ASSOCIATE Temperature 36.7 C (98.1 F) 10/06/2020 5:16 PM CDT Respiratory Rate 20 10/06/2020 5:16 PM CDT Oxygen Saturation 99% 10/06/2020 5:16 PM CDT Inhaled Oxygen Concentration - - Weight 77.1 kg (170 lb) 06/15/2021 8:19 AM FOOD AND BEVERAGE ASSOCIATE Height 177.8 cm (5' 10) 06/15/2021 8:19 AM FOOD AND BEVERAGE ASSOCIATE Body Mass Index 24.39 06/15/2021 8:19 AM FOOD AND BEVERAGE ASSOCIATE Plan of Treatment Health Maintenance Due Date Last Done Comments Hepatitis C Screening 1995 Varicella Vaccines (1 of 2 - 13+ 2-dose series) 2008 Hepatitis B Screening 2013 Regular Well Visit/Exam 18-64 2013 Cervical Cancer Screening 08/24/2021 08/24/2020 Depression Screening 10/06/2021 10/06/2020, 10/06/2020 HPV Vaccines (1 - 3-dose SCD M series) 2022 Covid-19 Vaccine (3 - 2024-2 6 season) 2025 08/15/2022, 11/17/2020 Influenza Vaccine (#1) 2025 DTaP/Tdap/Td Vaccine (2 - Td or Tdap) 12/01/2027 11/30/2017 Pneumococcal vaccine <65 Aged Out No longer eligible based on patient's age to complete this topic Procedures Procedure Name Priority Date/Time Associated Diagnosis Comments PAP AND HIGH RISK HPV, REFLEX TO GENOTYPING Routine 08/24/2020 4:45 PM CDT from Last 3 Months or Most Recently Relevant to Health Maintenance Results * Pap and High Risk HPV, reflex to Genotyping (08/24/2020 4:45 PM CDT) Pap test 08/24/2020 4:45 PM CDT 08/26/2020 1:04 PM CDT Narrative 08/31/2020 11:58 AM CDT EPIC results best viewed via link to PDF [address] [address] Tele: Nereyda Rollins MD - Buckle Inspector CYTOLOGY REPORT Patient Name: BRIAN DURHAM Address: [address] [place] [address] Gender: F : 1995 (Age: 25) Service: Laboratory Location: Lab [facility] #: [id number] Patient Type: GALINDO [facility] Lab Taken: 08/24/2020 Reported: 08/31/2020 Physician(s): Faye Block M.D. FINAL DIAGNOSIS: Specimen Type: - ThinPrep Pap and HPV w/ reflex Genotyping Statement of Specimen Adequacy: Source: Cervical/Endocervical - Satisfactory for interpretation - Endocervical /Transformation Zone component present - Case screened using computer assisted imaging technology and manually re- screened by a construction rigger. General Categorization: - Negative for intraepithelial lesion or malignancy Interpretation: - Reactive cellular changes associated with inflammation - Bacteria morphologically consistent with Actinomyces - Shift in ian suggestive of Bacterial Vaginosis rmd/08/31/2020 11:58 Examining Pathologist: Lisa Jimenes CT (ASCP) Report Reviewed and Electronically Signed By Gabrielle Ornelas M.D. Clerical Data Follow A; G0145, 43280 Z12.4 DIAGNOSIS COMMENT: Ancillary Testing: HPV High Risk Group (16, 18, 31, 33, 35, 39, 45, 51, 52, 56, 58, 59, 66 and 68) - Detected Reference Range: Not Detected This test was performed using the MER[employer]ES 4800 CLINICAL DIAGNOSIS AND HISTORY Last Menstrual Period: 07/28/20 REPORT IMAGES AND/OR SCANNED DOCUMENTS ONLY VIEWABLE IN PDF FORMAT The Pap test is a screening test used to aid in the detection of cervical cancer and its precursors. It should not be the sole means by which malignant and premalignant lesions are diagnosed. Both false negative and false positive results may occur. It also has poor sensitivity for the detection of endometrial lesions and should not be used to evaluate suspected endometrial abnormalities. For these reasons it is most important to obtain Pap tests at regular intervals, as recommended by your physician or nurse practitioner. Faye Block MD LAB CYTOLOGY ORDERAB LES Final Result from Last 3 Months or Most Recently Relevant to Health Maintenance [place] [address] [place] [address] Care Teams Chemical Processing Laborer Relationship Specialty Start Date End Date No, Physician PCP - General 07/20/21
--- OUTSIDE RECORDS SUMMARY | 2025-03-16 09:35 | XMS_ITS | Encounter Summary ---
Author Organization [facility] Address [address] [place] [address] Care Team Providers Care Regional Vice President Surgical Sales Name Role Phone Esmer Llanes NP Primary Care Provider [phone] Encounter Details Date Type Department Care Team (Late st Contact Info) Description 06/10/2021 RotaryViewt Message Enc [facility] Family Medicine - [place] [address] [place], [place] [phone] Esmer Llanes NP [address] [place], [place] [phone] Follow up Social History Tobacco Use Types Packs/Day Years Used Date Smoking Tobacco: Never Smokeless Tobacco: Never Alcohol Use Standard Drinks/Week Comments Yes 0 (1 standard drink = 0.6 oz pur e alcohol) once a week glass of wine Comments Unknown Sex and Gender Information Value Date Recorded Sex Assigned at Not on file Legal Sex Female 3:03 PM REMOTE SENSING SCIENTIST Gender Identity Not on file Sexual Orientation Not on file COVID-19 Exposure Response Date Recorded In the last month, have you been in contact with someone who was confirmed or suspected to have Coronavirus / COVID-19? No / Unsure 06/10/2021 10:01 AM REMOTE SENSING SCIENTIST documented as of this encounter Plan of Treatment Not on file documented as of this encounter Visit Diagnoses Not on filedocumented in this encounter Care Teams Regional Vice President Surgical Sales Relationship Specialty Start Date End Date Esmer Llanes NP [address] [place], [place] [address] PCP - General NURSE PRACTITIONER 06/08/21 02/26/25 documented as of this encounter
--- OUTSIDE RECORDS SUMMARY | 2025-03-16 09:36 | XMS_ITS | Clinical Summary ---
Author Organization [facility] Address [address] [place] [address] Care Team Providers Care Rehabilitation Therapy Aide Name Role Phone Unavailable Primary Care Provider Unavailabl e Source Comments [facility],non-owned Affiliates and Associated Physician Practices is amultiple site organization consisting of ambulatory clinics and hospital sitesin [place], [place], [place] and [place]. This disclosure is being madepursuant to the Care Everywhere program and may not contain all information available regarding this patient. Last updated 18.[facility] Allergies No known active allergies Medications * Be aware that medications may not be up to date on this document. Alwaysverify current medications with the patient. predniSONE (DELTASONE) 20 MG tablet 2 tablets po once daily with food for 2 days 4 tablet 04/18/2019 Active Active Problems No known active problems Immunizations Immunization Administration Dates Next Due TDAP (7yrs+) 11/30/2017 Social History Tobacco Use Types Packs/Day Years Used Date Smoking Tobacco: Never Smokeless Tobacco: Never Comments Unknown Sex and Gender Information Value Date Recorded Sex Assigned at Not on file Legal Sex Female 4:22 PM CDT Gender Identity Not on file Sexual Orientation Not on file Last Filed Vital Signs Vital Sign Reading Time Taken Comments Blood Pressure 120/70 04/18/2019 5:29 PM TRAVEL CLERK Pulse 74 04/18/2019 5:29 PM TRAVEL CLERK Temperature 36.6 C (97.9 F) 04/18/2019 5:29 PM TRAVEL CLERK Respiratory Rate 18 04/18/2019 5:29 PM TRAVEL CLERK Oxygen Saturation 99% 04/18/2019 5:29 PM TRAVEL CLERK Inhaled Oxygen Concentration - - Weight 78.9 kg (174 lb) 04/18/2019 5:29 PM TRAVEL CLERK Height 177.8 cm (5' 10) 04/18/2019 5:29 PM TRAVEL CLERK Body Mass Index 24.97 04/18/2019 5:29 PM TRAVEL CLERK Plan of Treatment Health Maintenance Due Date Last Done Comments HIV SCREENING 2010 HEPATITIS C SCREENING 03/06/2013 HEPATITIS B VACCINE (1 of 3 - 19+ 3-dose series) 2014 PAP SMEAR 2016 HPV VACCINE (1 - 3-dose SCDM series) 2022 DEPRESSION SCREENING 05/21/2024 COVID-19 VACCINE (1 - 2023-2 5 season) 2025 INFLUENZA VACCINE (#1) 2025 DTAP/TDAP/TD VACCINES (2 - T d or Tdap) 12/01/2027 11/30/2017 ZOSTER VACCINE (1 of 2) 2045 HIB VACCINE Aged Out No longer eligi ble based on patient's age to complete this topic MENINGOCOCCAL (Group B) VACC INE SHARED DECISION-MAKING Aged Out No longer eligibl e based on patient's age to complete this topic MENINGOCOCCAL GROUPS A/C/Y/W VACCINE Aged Out No longer eligible b ased on patient's age to complete this topic PNEUMOCOCCAL VACCINE Aged Out No long er eligible based on patient's age to complete this topic Insurance [employer]
--- OUTSIDE RECORDS SUMMARY | 2025-03-16 09:36 | XMS_ITS | Patient Health Record ---
Author Organization [facility] Address [address] [address] Care Team Providers Care Footwear Sales Leader Name Role Phone Merna Valente Primary Care Provider [phone] Migration, Provider Unavailable Unavailable Allergies No Known Allergies Results Component Value Reference Range Notes COMPREHENSIVE METABOLIC PANE L Reviewed date:05/23/2024 10:51:31 AM Interpretation: Performing Lab:[facility], [address] [place], [address] Luis Alberto Jones MD Notes/Report: IODINE, SERUM/PLASMA Reviewed date:05/27/2024 03:52:20 PM Interpretation: Performing Lab:[facility], [address], [place], [address] Jayden Jimenez M.D.,PhD Notes/Report: VITAMIN B12/FOLATE, SERUM PA RAMONITA Reviewed date:05/23/2024 10:51:31 AM Interpretation: Performing Lab:[facility], [address] [place], [address] Luis Alberto Jones MD Notes/Report: T4, FREE Reviewed date:05/23/2024 10:51:31 AM Interpretation: Performing Lab:[facility], [address] [place], [address] Luis Alberto Jones MD Notes/Report: TSH Reviewed date:05/23/2024 10:51:31 AM Interpretation: Performing Lab:[facility], [address] [place], [address] Luis Alberto Jones MD Notes/Report: TESTOSTERONE, FREE (DIALYSIS ) AND TOTAL,MS Reviewed date:05/27/2024 03:50:27 PM Interpretation: Performing Lab:[facility], [address], [place], [address] Jon Powers MD,PhD Notes/Report: TESTOSTERONE, TOTAL, MS 31 2-45 ng/dL For additional information, please refer to https://education.[employer].com/faq/XQM687 (This link is being provided for informational/educational purposes only.) (Note) This test was developed and its analytical performance characteristics have been determined by [facility]. It has not been cleared or approved by the FDA. This assay has been validated pursuant to the CLIA regulations and is used for clinical purposes. TESTOSTERONE, FREE 4.6 0.1-6.4 pg/mL (Note) This test was developed and its analytical performance characteristics have been determined by [facility]. It has not been cleared or approved by the FDA. This assay has been validated pursuant to the CLIA regulations and is used for clinical purposes. [facility] [address] [facility] [address] Jon Powers MD, PhD Reason For Referral No Information Medications Medication SIG (Take, Route, Frequency, Duration) Notes Start Date End Date Status Multi Vitamin - 1 tab(s) orally once a day Active Vitamin D3 250 MCG 1 CAP(S) ORALLY ONCE A WEEK *Please review and pick correct strength-formulati on from [employer] options. If intended option is not shown, discontinue and re-order from Quick Search* Active Fish Oil 1000 MG 1 cap(s) orally 3 times a day (with meals) Active Spironolactone 50 MG 2 tabs orally daily; Duration: 90 days 03/06/2024 Active Collagen Skin Renewal *Please re view and pick correct strength-formulati on from [employer] options. 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 Problem Irregular menstruation (48306312) Irregular menstruation, unspecified (N92.6) Active confirmed Vital Signs Heart Rate 75 /min 06/05/2024 Blood pressure diastolic 75 mm Hg 06/05/2024 Height 70 in 06/05/2024 Blood pressure systolic 124 mm Hg 06/05/2024 Weight 179.6 lbs 06/05/2024 BMI 25.77 kg/m2 06/05/2024 Encounters Encounter Location Date Provider Diagnosis [facility] [employer] [address] [place] [address] 06/05/2024 Merna Valente Autoimmune thyroiditis E06.3 ; Nontoxic goiter, unspecified E04.9 ; Unspecified jaundice R17 ; Right upper quadrant pain R10.11 ; Other fatigue R53.83 and Other disorders of phosphorus metabolism E83.39 [facility] [address] [place] [address] 08/15/2024 Merna Valente [address] [address] 04/05/2024 Provider Migration Polycystic ovarian syndrome E28.2 [facility] [employer] [address] [place] [address] 06/05/2024 Merna Valente [facility] [employer] [address] [place] [address] 06/23/2024 Merna Valente Assessments Encounter Date Diagnosis (ICD Code) Assessment Notes Treatment Notes Treatment Clinical Notes Section Notes 06/05/2024 Nontoxic goiter, unspecified (ICD-10 - E04.9) 06/05/2024 Autoimmune thyroiditis (ICD-10 - E06.3) 04/05/2024 Polycystic ovarian syndrome (ICD-10 - E28.2) 06/05/2024 Unspecified jaundice (ICD-10 - R17) 06/05/2024 Right upper quadrant pain (ICD-10 - R10.11) 06/05/2024 Other fatigue (ICD-10 - R53.83) 06/05/2024 Other disorders of phosphorus metabolism (ICD-10 - E83.39) 06/05/2024 Other Thyroid dysfunction with low iodinePatient presents with low iodine levels (44, previously 51) based on recent blood work. T4 levels are high, indicating no need for thyroid replacement. Patient reports fluctuating thyroid symptoms, including occasional soreness, facial puffiness, and fatigue. No change in thyroid size noted.- Recommend thyroid support supplement with higher iodine content (600-900 mcg/day)- Continue current multivitamin- Repeat thyroid ultrasound in July Low alkaline phosphatase (ALKPhos)Patient's ALKPhos levels are low (38, previously 42), approaching the lower limit of 40. This may impact bone, dental enamel, ligaments, tendons, and neuromuscular function. Patient reports hyperflexibility and occasional joint soreness but denies musculoskeletal issues, trouble walking, lifting, or recuperating after exercise.- Order urine phosphoethanolamine test to check enzyme formation- Order gallbladder ultrasound- Order MTHFR mutation test with biotin deficiency, B6-MPEA Elevated bilirubinPatient has high bilirubin levels, which may contribute to reported fatigue. No current gallbladder issues or pain after eating reported. Patient mentions past tenderness after heavy drinking in college.- Order liver ultrasound Headaches and dizzinessPatient reports experiencing headaches and occasional dizziness. Magnesium supplementation has helped reduce dizziness symptoms.- Continue magnesium supplementation as tolerated Polycystic ovary syndrome (PCOS)Patient reports regular menstrual cycles, with a recent one-week delay after switching to a multivitamin with spironolactone. Skin appearance has improved with baby hair growth, and facial hair growth has slowed down. Blood pressure and weight are within normal limits, with a BMI of 25. Patient has lost 3-4 pounds since the last visit in February.- Continue current multivitamin with spironolactone- Monitor menstrual cycle regularity Spent 25 minutes preparing to see the patient (ex review of tests/chart), obtaining and / or reviewing separately obtained history, performing a medically appropriate examination and/or evaluation, counseling and educating the patient/family/caregiv er, ordering medications, tests, or procedures, referring and communicating with other health wound care nurse, documenting clinical information in the electronic or other health record, independently interpreting results and communicating results to the patient/family/caregiv er and care coordinating patient plan. Patient alert and oriented x 4 and aware of discussion noted above and in agreeance to plan in management of autoimmune thyroiditis/goiter, elevated bilirubin and need to assess gallbladder/liver, fatigue and concern for low alk phos. Plan Of Treatment Pending Test Test Name Order Date ultrasound thyroid 02/08/2024 ultrasound thyroid 06/05/2024 ultrasound liver and gallbladder 025 Insurance Providers Payer Name Payer Address Payer Phone Subscriber Number Group Number Insured Name Patient Relationship to Insured Coverage Start Date Coverage End Date [facility] [address] [address] [place] [address] [id number] Joan Durham Self - patient is the insured Medical (General) History Medical History History ICD Code whey protein allergy; hives Surgical History Surgery Date(Month/Year) wisdom teeth 2009
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
--- OUTSIDE RECORDS SUMMARY | 2025-03-16 09:36 | XMS_ITS | Patient Health Record ---
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 Name Role Phone Merna Valente Primary Care Provider Migration, Provider Unavailable Unavailable Allergies Allergen (clinical drug ingredient) Drug/Non Drug Allergy documented on EMR Reaction Allergy Type Onset Date Status Whey Protein hives Drug Allergy Acti ve Results Component Value Reference Range Flag Notes COMPREHENSIVE METABOLIC PANE L Reviewed date:05/23/2024 10:51:31 AM Interpretation: Performing Lab:[facility], [facility], [address], [place], [address] Luis Alberto Jones MD Notes/Report: Fasting reference interval Not Reported: BUN and Creatinine are within reference range. GLUCOSE 95 65-99 mg/dL N UREA NITROGEN (BUN) 21 7-25 mg/dL N CREATININE 0.89 0.50-0.96 mg/dL N EGFR 90 > OR = 60 mL/min/1.73m2 N BUN/CREATININE RATIO SEE NOTE: 6-22 (calc) SODIUM 140 135-146 mmol/L N POTASSIUM 4.2 3.5-5.3 mmol/L N CHLORIDE 106 98-110 mmol/L N CARBON DIOXIDE 29 20-32 mmol/L N CALCIUM 9.2 8.6-10.2 mg/dL N PROTEIN, TOTAL 7.2 6.1-8.1 g/dL N ALBUMIN 4.4 3.6-5.1 g/dL N GLOBULIN 2.8 1.9-3.7 g/dL (calc) N ALBUMIN/GLOBULIN RATIO 1.6 1.0-2.5 (calc) N BILIRUBIN, TOTAL 1.1 0.2-1.2 mg/dL N ALKALINE PHOSPHATASE 39 31-125 U/L N AST 14 10-30 U/L N ALT 13 6-29 U/L N IODINE, SERUM/PLASMA Reviewed date:05/27/2024 03:52:20 PM Interpretation: Performing Lab:[facility], [address], [place], [address] Jayden Jimenez M.D.,PhD Notes/Report: This test was developed and its analytical performance characteristics have been determined by [facility] [place], [place]. It has not been cleared or approved by the U.S. Food and Drug Administration. This assay has been validated pursuant to the CLIA regulations and is used for clinical purposes. IODINE, SERUM/PLASMA 44 52-109 mcg/L L VITAMIN B12/FOLATE, SERUM PA RAMONITA Reviewed date:05/23/2024 10:51:31 AM Interpretation: Performing Lab:[facility], [address] [place], [address] Luis Alberto Jones MD Notes/Report: Reference Range Low: <3.4 Borderline: 3.4-5.4 Normal: >5.4 VITAMIN B12 225 623-1316 pg/mL N FOLATE, SERUM >24.0 N T4, FREE Reviewed date:05/23/2024 10:51:31 AM Interpretation: Performing Lab:[facility], [address] [place], [address] Luis Alberto Jones MD Notes/Report: T4, FREE 1.3 0.8-1.8 ng/dL N TSH Reviewed date:05/23/2024 10:51:31 AM Interpretation: Performing Lab:[facility], [address] [place], [address] Luis Alberto Jones MD Notes/Report: Reference Range > or = 20 Years 0.40-4.50 Ranges First trimester 0.26-2.66 Second trimester 0.55-2.73 Third trimester 0.43-2.91 TSH 0.80 N TESTOSTERONE, FREE (DIALYSIS ) AND TOTAL,MS Reviewed date:05/27/2024 03:50:27 PM Interpretation: Performing Lab:[facility], [facility], [address], [address], [place], [address] Jon Powers MD,PhD Notes/Report: For additional information, please refer to https://education.[employer]/faq/NVS406 (This link is being provided for informational/educational purposes only.) (Note) This test was developed and its analytical performance characteristics have been determined by [facility]. It has not been cleared or approved by the FDA. This assay has been validated pursuant to the CLIA regulations and is used for clinical purposes. (Note) This test was developed and its analytical performance characteristics have been determined by [facility]. It has not been cleared or approved by the FDA. This assay has been validated pursuant to the CLIA regulations and is used for clinical purposes. MD med fusion [address] [facility] [address] Jon Powers MD, PhD TESTOSTERONE, TOTAL, MS 31 2-45 ng/dL TESTOSTERONE, FREE 4.6 0.1-6.4 pg/mL PHOSPHOETHANOLAMINE (PEA), U RINE WITH CREATININE Reviewed date:09/17/2024 12:36:09 PM Interpretation: Performing Lab:[facility], [facility],[address] [facility] Porsha Hammond MD,PhD,RASHIDA Notes/Report: FASTING:YES FASTING: YES PHOSPHOETHANOLAMINE (PEA), URINE 1 0.59-7.25 mmol/mol mannequin molder IF THE ORDERING/TREATING PHYSICIAN HAS ANY QUESTIONS REGARDING THESE RESULTS, PLEASE CONTACT THE [facility] AT ext [phone] or ext [phone] AND ASK TO SPEAK WITH THE DEHAIRER ORACLE DATABASE ARCHITECT. FOR GENERAL QUESTIONS ABOUT [facility], PLEASE CALL THE GENE INFO LINE AT [phone]. CREATININE, RANDOM URINE 8.80 1.77-23 .31 mmol/L Hypophosphatasia (HPP) is characterized by defective mineralization of bones and teeth. It is caused by loss of function pathogenic variants in the ALPL gene encoding a tissue-nonspecific isoenzyme alkaline phosphatase (TNSALP) that is essential for bone development. HPP is typically inherited in either an autosomal dominant or autosomal recessive manner depending on the effect that the ALPL variant has on TNSALP activity. HPP has a wide range of severity, with the most severe forms presenting prenatally or in infancy and the mildest forms presenting in adulthood. Common signs include skeletal abnormalities, increased or recurrent bone fractures, bone and joint pain, and/or premature loss of teeth. Odontohypophosphatasia is the mildest form and is characterized by dental abnormalities without any skeletal manifestations. FDA-approved enzyme replacement therapy may improve overall outcomes such as quality of life, bone health and reduced fractures. Phosphoethanolamine (PEA) is an amino acid and substrate to TNSALP. Therefore, PEA urinalysis is used to support a diagnosis of HPP, especially in patients with low alkaline phosphatase, and to monitor enzyme replacement treatment. Several studies showed that elevated urine PEA is a specific biomarker for HPP. However, other bone diseases, some endocrine disorders and hypertension can also cause elevated urine PEA. This test was developed and its analytical performance characteristics have been determined by [facility]. It has not been cleared or approved by the FDA. This assay has been validated pursuant to the CLIA regulations and is used for clinical purposes. TESTOSTERONE, FREE (DIALYSIS ) AND TOTAL,MS ([id number]) Reviewed date:08/21/2024 08:23:41 PM Interpretation: Performing Lab:[facility] [address], [address], [place] Jon Powers MD,PhD Notes/Report: FASTING:YES FASTING: YES TESTOSTERONE, TOTAL, MS 34 2-45 ng/dL For additional information, please refer to https://education.[employer]/faq/QFT279 (This link is being provided for informational/educational purposes only.) (Note) This test was developed and its analytical performance characteristics have been determined by [facility]. It has not been cleared or approved by the FDA. This assay has been validated pursuant to the CLIA regulations and is used for clinical purposes. TESTOSTERONE, FREE 4.1 0.1-6.4 pg/mL (Note) This test was developed and its analytical performance characteristics have been determined by [facility]. It has not been cleared or approved by the FDA. This assay has been validated pursuant to the CLIA regulations and is used for clinical purposes. MD [facility] [address] [facility] [address] Jon Powers MD, PhD QUANTIFERON(R)-TB GOLD PLUS, 1 TUBE ([id number]) Reviewed date:07/24/2024 08:15:43 AM Interpretation: Performing Lab:[facility] [place] Luis Alberto Jones MD Notes/Report: QUANTIFERON(R)-TB GOLD PLUS, 1 TUBE NEGATIVE NEGATIVE N Negative test result. M. tuberculosis complex infection unlikely. NIL 0.02 N MITOGEN-NIL >10.00 N TB1-NIL 0.01 N TB2-NIL 0.01 N The Nil tube value reflects the background interferon gamma immune response of the patient's blood sample. This value has been subtracted from the patient's displayed TB and Mitogen results. Lower than expected results with the Mitogen tube prevent false-negative Quantiferon readings by detecting a patient with a potential immune suppressive condition and/or suboptimal pre-analytical specimen handling. The TB1 Antigen tube is coated with the M. tuberculosis-specific antigens designed to elicit responses from TB antigen primed CD4+ helper T-lymphocytes. The TB2 Antigen tube is coated with the M. tuberculosis-specific antigens designed to elicit responses from TB antigen primed CD4+ helper and CD8+ cytotoxic T-lymphocytes. For additional information, please refer to https://education.[employer]/faq/DBJ974 (This link is being provided for informational/ educational purposes only.) QUANTIFERON(R)-TB GOLD PLUS, 1 TUBE (43787) Reviewed date:07/19/2024 12:06:07 PM Interpretation: Performing Lab:[facility]-[address] SnvtutFX[address] Luis Alberto Jones MD Notes/Report: QUANTIFERON(R)-TB GOLD PLUS, 1 TUBE TNP N TEST NOT PERFORMED The specimen type required for the add-on test was not originally collected. VITAMIN B6, PLASMA (926) Reviewed date:07/19/2024 12:06:07 PM Interpretation: Performing Lab:[facility]a [facility] [place] [address], [address], [place] Jon Powers MD,PhD Notes/Report: T3, FREE (65450) Reviewed date:07/19/2024 12:06:07 PM Interpretation: Performing Lab:[facility]-[address]wpjm[address], [place]ms[place]okEQ[address] Luis Alberto Jones MD Notes/Report: T3, FREE 3.4 2.3-4.2 pg/mL N TSH (899) Reviewed date:07/19/2024 12:06:07 PM Interpretation: Performing Lab:[facility]-[address]imp[address], [place]ijzzBQ[address] Luis Alberto Jones MD Notes/Report: TSH 0.87 N Reference Range > or = 20 Years 0.40-4.50 Ranges First trimester 0.26-2.66 Second trimester 0.55-2.73 Third trimester 0.43-2.91 T4, FREE (866) Reviewed date:07/19/2024 12:06:07 PM Interpretation: Performing Lab:[facility]-[address]zi[address], CaodhjJR[address] Luis Alberto Jones MD Notes/Report: T4, FREE 1.4 0.8-1.8 ng/dL N .COMPREHENSIVE METABOLIC [place] (81827) [facility] Reviewed date:07/19/2024 12:06:07 PM Interpretation: Performing Lab:[facility]-Uspqbs[address], XnyebvBE[address] Luis Alberto Jones MD Notes/Report: GLUCOSE 93 65-99 mg/dL N Fasting reference interval UREA NITROGEN (BUN) 23 7-25 mg/dL N CREATININE 0.91 0.50-0.96 mg/dL N EGFR 88 > OR = 60 mL/min/1.73m2 N BUN/CREATININE RATIO SEE NOTE: 6-22 (calc) Not Reported: BUN and Creatinine are within reference range. SODIUM 137 135-146 mmol/L N POTASSIUM 4.8 3.5-5.3 mmol/L N CHLORIDE 102 98-110 mmol/L N CARBON DIOXIDE 28 20-32 mmol/L N CALCIUM 9.6 8.6-10.2 mg/dL N PROTEIN, TOTAL 7.5 6.1-8.1 g/dL N ALBUMIN 4.5 3.6-5.1 g/dL N GLOBULIN 3.0 1.9-3.7 g/dL (calc) N ALBUMIN/GLOBULIN RATIO 1.5 1.0-2.5 (calc) N BILIRUBIN, TOTAL 1.0 0.2-1.2 mg/dL N ALKALINE PHOSPHATASE 39 31-125 U/L N AST 13 10-30 U/L N ALT 12 6-29 U/L N AMINO ACID ANALYSIS, LC/MS, URINE (77924) Reviewed date:07/19/2024 12:06:07 PM Interpretation: Performing Lab:EZ, [facility],[address] [facility] Porsha Hammond MD,PhD,RASHIDA Notes/Report: METHYLENETETRAHYDROFOLATE RE DUCTASE (MTHFR), DNA (79120) Reviewed date:07/24/2024 08:17:23 AM Interpretation: Performing Lab:EZ, [facility] [facility], [facility] Porsha Hammond MD,PhD,RASHIDA Notes/Report: METHYLENETETRAHYDROFOLATE REDUCTASE (MTHFR), DNA POSITIVE RESULT: POSITIVE FOR ONE COPY OF THE C677T VARIANT AND ONE COPY OF THE U1992E VARIANT INTERPRETATION See Below INTERPRETATION: 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 This result is not associated with a significantly increased risk for coronary artery disease, venous thromboembolism, or adverse outcome. This assay cannot determine whether these two variants are on opposite chromosomes (trans) or on the same chromosome (cis). Laboratory testing supervised and results monitored by Luis Felipe Friend, Ph.D., FACMG, HCLD, CGMB. Reduced methylenetetrahydrofolate reductase (MTHFR) enzyme activity is a genetic risk factor for hyperhomocysteinemia, especially when present with low serum folate levels. Two common variants in the MTHFR gene result in reduced enzyme activity. The thermolabile variant C677T [NM 051969.3: c.665C>T (p.A222V)] and D2221P [c. 1286A>C (p.E429A)] occur frequently in the general population. Mild to moderate hyperhomocysteinemia has been identified as a risk factor for coronary artery disease and venous thromboembolism. Hyperhomocysteinemia is multifactorial, involving a combination of genetic, physiologic and environmental factors. Recent studies do not support the previously described association of increased risk for coronary artery disease and venous thromboembolism with mild hyperhomocysteinemia caused by reduced MTHFR activity. Therefore, the utility of MTHFR variant testing is uncertain and is not recommended by The [employer] (ACMG) or the [place] [employer] Gynec[employer] (ACOG) in the evaluation of venous thromboembolism or adverse outcome. Modest positive association has also been found between the thermolabile variant of the MTHFR gene and many other medical complications, such as recurrent loss, risk of offspring with neural tube defects, neuropsychiatric disease, and chemotherapy toxicity. Increased risk of coronary artery disease, venous thromboembolism and increased plasma homocysteine can be caused by a variety of genetic and non-genetic factors not screened for by this assay. If indicated by personal or family history of thromboembolism, consider additional testing such as plasma homocysteine levels, factor V Leiden and prothrombin gene mutations. The C677T and Y2954F variants are detected by amplification of the selected regions of the MTHFR gene by polymerase chain reaction (PCR) and fluorescent probes hybridization to the targeted regions, followed by melting curve analysis with a real time PCR system. Although rare, false positive or false negative results may occur. All results should be interpreted in context of clinical findings, relevant history, and other laboratory data. Health care providers, please contact your local [facility] genetic counselor or call [employer] ([phone]) for assistance with interpretation of these results. For additional information, please refer to http://education.[employer].com/faq/FAQ20 (This link is being provided for informational/educational purposes only.) This test was developed and its analytical performance characteristics have been determined by [facility]. It has not been cleared or approved by the U.S. Food and Drug Administration. This assay has been validated pursuant to the CLIA regulations and is used for clinical purposes. IODINE, SERUM/PLASMA (32666) Reviewed date:07/24/2024 08:22:50 AM Interpretation: Performing Lab:AR[facility], [facility] [id number], UugwyyshlGO[address] Jayden Jimenez M.D.,PhD Notes/Report: IODINE, SERUM/PLASMA 52 52-109 mcg/L This test was developed and its analytical performance characteristics have been determined by [facility] [place], [place]. It has not been cleared or approved by the U.S. Food and Drug Administration. This assay has been validated pursuant to the CLIA regulations and is used for clinical purposes. Reason For Referral No Information Medications Medication SIG (Take, Route, Frequency, Duration) Notes Start Date End Date Status Spironolactone 50 MG Tablet 1 tablet Orally Once a day; Duration: 90 days please use [employer] as others do not work for patient Active Spironolactone 100 MG Tablet 1 tablet Orally daily; Duration: 90 days 02/17/2025 Active Vitamin D3 250 MCG CAPSULE 1 CAP(S) ORALLY ONCE A WEEK *Please review and pick correct strength-formulation from [employer] options. If intended option is not shown, discontinue and re-order from Quick Search* *Pick strength-form from [employer] for eRX* Active Fish Oil 1000 MG Capsule 1 cap(s) orally 3 times a day (with meals) Active Multi Vitamin - Tablet 1 tab(s) orally once a day Active Collagen Skin Renewal *Please re view and pick correct strength-formulation from [employer] options. If intended option is not shown, discontinue and re-order from Quick Search* *Pick strength-form from [employer] for eRX* Active Social History Social History Additional Details Category Social Info Options Details Migrated Social History Migrated Social History (Alcohol:):yes once weekly with wine (Exercise:):yes (Sexually active:):yes (Smoking:):no Section Notes: Non-Contributory Problems Problem Type SNOMED Code ICD Code Onset Dates Problem Status W/U Status Risk Notes Problem Non-toxic goiter (448096942) Nontoxic goiter, unspecified (E04.9) Active confirmed Problem Autoimmune thyroiditis (52935049) Autoimmune thyroiditis (E06.3) Active confirmed Problem Polycystic ovary syndrome (disorder) (740192083) Polycystic ovarian syndrome (E28.2) Active confirmed Problem 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 Valente [address] [place] [phone] 06/05/2024 Merna Valente Nontoxic goiter, unspecified E04.9 ; Autoimmune thyroiditis E06.3 ; Unspecified jaundice R17 ; Right upper quadrant pain R10.11 ; Other fatigue R53.83 and Other disorders of phosphorus metabolism E83.[address] Valente [address] [place] [phone] 08/14/2024 Merna Valente Autoimmune thyroiditis E06.3 ; Polycystic ovarian syndrome E28.2 and Other disorders of phosphorus metabolism E83.[address] Valente [address] [place] [phone] 12/29/2024 Merna Valente Autoimmune thyroiditis E06.3 and Polycystic ovarian syndrome E28.[address] Valente [address] [place] [phone] 06/05/[address] [facility] [address] [place] [phone] 08/12/2024 Merna Valente [facility] [address] [place] [phone] 08/15/2024 Merna Valente Polycystic ovarian syndrome E28.[address] Valente [id number] [place] [phone] 12/15/[address] Valente [address] [place] [phone] 02/05/2025 Merna Valente [address] [place] [address] 02/09/2025 Merna Valente [address] [place] [address] 02/16/2025 Merna Valente [address] [place] [address] 02/19/2025 Merna Valente [address] [place] [address] 03/16/2025 Merna Valente Assessments Encounter Date Diagnosis (ICD Code) Assessment Notes Treatment Notes Treatment Clinical Notes Section Notes 08/14/2024 Autoimmune thyroiditis (ICD-10 - E06.3) 12/29/2024 Autoimmune thyroiditis (ICD-10 - E06.3) 08/15/2024 Polycystic ovarian syndrome (ICD-10 - E28.2) 06/05/2024 Nontoxic goiter, unspecified (ICD-10 - E04.9) 06/05/2024 Autoimmune thyroiditis (ICD-10 - E06.3) 04/05/2024 Polycystic ovarian syndrome (ICD-10 - E28.2) 06/05/2024 Unspecified jaundice (ICD-10 - R17) 12/29/2024 Polycystic ovarian syndrome (ICD-10 - E28.2) 08/14/2024 Polycystic ovarian syndrome (ICD-10 - E28.2) 08/14/2024 Other disorders of phosphorus metabolism (ICD-10 - E83.39) 06/05/2024 Right upper quadrant pain (ICD-10 - [...] procedures, referring and communicating with other health animal care giver, documenting clinical information in the electronic or other health record, independently interpreting results and communicating results to the patient/family/caregiv er and care coordinating patient plan. Patient alert and oriented x 4 and aware of discussion noted above and in agreeance to plan in management of autoimmune thyroiditis/goiter, elevated bilirubin and need to assess gallbladder/liver, fatigue and concern for low alk phos. 08/14/2024 Other Assessment and Plan: 1. MTHFR Heterozygosity- Continue B12 and folic acid supplementation for energy and cellular regeneration- Recommend methylated form of supplements - Avoid basic [id number]-ymzdmoj brands- Prescribed 15 mg methylated supplement (clinical dose) 2. Spironolactone Efficacy Concerns- Investigate social sciences lecturer of effective previous batch through pharmacy- Consider specifying social sciences lecturer in future prescriptions- Monitor for continued efficacy and side effects- Patient to advocate for preferred social sciences lecturer at pharmacy 3. Thyroid Function- Continue current thyroid medication regimen- Monitor thyroid function regularly 4. Low alk phos- Await results of urine study- Consider further evaluation if urine study is positive for hypophosphatasia 5. Hormone Management- Continue current hormone management plan- Monitor hormone levels regularly- Emphasize importance of diligence in hormone management, especially thyroid Spent 25 minutes preparing to see the patient (ex review of tests/chart), obtaining and / or reviewing separately obtained history, performing a medically appropriate examination and/or evaluation, counseling and educating the patient/family/caregiv er, ordering medications, tests, or procedures, referring and communicating with other health animal care giver, documenting clinical information in the electronic or other health record, independently interpreting results and communicating results to the patient/family/caregiv er and care coordinating patient plan. Patient alert and oriented x 4 and aware of discussion noted above and in agreeance to plan in management of autoimmune thyroiditis, MTHFR mutation/heterozygous, PCOS/hormone management. 12/29/2024 Ruben Holder, a female patient with a history of PCOS, presents for follow-up of hirsutism management and hormone regulation. HirsutismAssessment: Patient reports recent exacerbation of facial hair growth, requiring shaving or waxing every couple of days. This occurred despite being on spironolactone 100 mg daily, which had previously been effective in managing hirsutism. The only recent change was the addition of saffron supplementation 2 weeks ago. Previous testosterone level from July was 34 ng/dL, which is within normal limits. Patient has tried laser hair removal in the past without success, likely due to fine hair texture. Current management includes waxing and shaving, with consistent post-waxing breakouts.Plan:- Discontinue saffron supplementation to evaluate its potential impact on hirsutism- Continue spironolactone 100 mg daily- Obtain updated hormone panel, including LH, FSH, and testosterone on day 20-21 of next menstrual cycle- Follow up in 6-8 weeks to reassess hirsutism and review lab results Polycystic Ovary Syndrome (PCOS)Assessment: Patient reports regular menstrual cycles occurring every 28-30 days. Currently using Inosacare supplement, which contains Mike-inositol and Q-hswal-eqarguch, for PCOS management. Initial use of Inosacare caused temporary spotting, which resolved. Last known fasting glucose was 93 mg/dL in July, indicating good glycemic control.Plan:- Continue Inosacare supplement as currently prescribed- Obtain LH and FSH levels to assess LH:FSH ratio and evaluate effectiveness of inositol supplementation- Review hormone panel results at follow-up appointment in 6-8 weeks Spent 15 minutes preparing to see the patient (ex review of tests/chart), obtaining and / or reviewing separately obtained history, performing a medically appropriate examination and/or evaluation, counseling and educating the patient/family/caregiv er, ordering medications, tests, or procedures, referring and communicating with other health animal care giver, documenting clinical information in the electronic or other health record, independently interpreting results and communicating results to the patient/family/caregiv er and care coordinating patient plan. Patient alert and oriented x 4 and aware of discussion noted above and in agreeance to plan in management of autoimmune thyroiditis, PCOS. Plan Of Treatment Pending Test Test Name Order Date ultrasound thyroid 02/08/2024 ultrasound thyroid 06/05/2024 ultrasound liver and gallbladder 025 Next Appt Details Provider Name:Merna Valente 09:40:00 AM, [address] [place] [address], [id number], Insurance Providers Payer Name Payer Address Payer Phone Subscriber Number Group Number Insured Name Patient Relationship to Insured Coverage Start Date Coverage End Date [facility] [id number] [place] [phone] [id number] Joan Durham Self - patient is the insured Medical (General) History Surgical History Surgery Date(Month/Year) wisdom teeth extraction 2009
[2025-03-16 09:38] LABS: Hematocrit 42.6 % (37.0-47.0); Hemoglobin 14.0 g/dL (12.0-15.0); Immature Granulocyte Percent A 0.3 % (0-0.5); Lymphocytes Absolute Auto 2.53 K/mm3 (0.9-3.2); Mean Corpuscular HGB Conc 32.9 g/dl (32-36); Mean Corpuscular Hemoglobin 29.3 pg (26-34); Mean Corpuscular Volume 89.1 fl (80-100); Nucleated Red Blood Cells Absolute Auto 0.000 K/mm3 (0.0-0.012); Nucleated Red Blood Cells Perc 0.0 % (0.0-0.2); Platelet Count Result 193 k/mm3 (150-375); Red Blood Count 4.78 M/mm3 (4.2-5.4); White Blood Count 6.8 K/mm3 (4.5-10.0)
[2025-03-16 10:06] LABS: Alanine Aminotransferase 16 U/L (6-35); Albumin Level 4.5 g/dL (3.5-5.1); Alkaline Phosphatase 54 U/L (38-126); Anion Gap 5 mmol/L (4-12); Aspartate Amino Transferase 25 U/L (14-36); Bilirubin,Total 2.1 mg/dL (0.2-1.3); Blood Urea Nitrogen 12 mg/dL (7-17); Calcium 9.4 mg/dL (8.4-10.2); Carbon Dioxide 28 mmol/L (22-30); Chloride 102 mmol/L (98-107); Estimated Glomerular Filt Rate > 60; Glucose 97 mg/dL (65-110); Potassium 4.4 mmol/L (3.4-5.0); Sodium 135 mmol/L (137-145); Total Protein 7.8 g/dL (6.3-8.2)
[2025-03-16 10:13] LABS: Free T3 4.74 pg/mL (2.32-6.09); Free T4 Free Thyroxine 1.50 ng/dL (0.78-2.19)
[2025-03-16 10:42] LABS: Thyroid Stimulating Hormone 0.897 uIU/mL (0.465-4.680)
[2025-03-16 11:27] LABS: Vitamin B12 > 1000.0 pg/mL (239-931)
[2025-03-17 07:09] LABS: FSH 5.1 mIU/mL (.); LH 11.3 mIU/mL (.)
[2025-03-18 23:07] LABS: Free Testosterone (Direct) 1.4 pg/mL (0.0-4.2)
[2025-03-20 11:09] LABS: Estradiol, Sensitive 118.0 pg/mL (.)
== END 2025-03-16 08:57 | disposition home or self-care (01) ==
LOC: ANHLAB 08:59
PROVIDERS: PCP Family Medicine; Visit Provider Internal Medicine Endocrinology, Diabetes & Metabolism
DX: E28.2 Polycystic ovarian syndrome (principal); R53.82 Chronic fatigue, unspecified; E06.3 Autoimmune thyroiditis; E55.9 Vitamin D deficiency, unspecified
CPT/HCPCS: 36415; 80053; 82306; 82607; 82670; 82746; 83001; 83002; 84144; 84402; 84403; 84439; 84443; 84481; 85025